=== PATIENT | female | born 1955 | race African-American/Black ===

== ENCOUNTER 2024-05-18 13:45 | Emergency (ER) | payer OTHER, MEDICARE ==
[~2024-05-18] VITALS: Ht 165.1 cm; Wt 73.0 kg
[2024-05-18 13:47] VITALS: O2SAT 100
[2024-05-18 14:42] LABS: BASOPHILS % 0.8 % (0.0-2.0); DIFFERENTIAL COMMENT 0; EOSINOPHILS % 2.9 % (0.0-5.0); HEMATOCRIT. 41.7 % (36.0-48.0); HEMOGLOBIN. 12.8 g/dL (12.0-16.0); LYMPHOCYTES % 27.3 % (20.0-50.0); MEAN CORPUSCULAR HEMOGLOBIN 27.2 pg (28.0-32.0); MEAN CORPUSCULAR HGB CONC 30.6 g/dL (31.0-37.0); MEAN PLATELET VOLUME 7.8 fl (7.4-10.4); MONOCYTES % 9.3 % (2.0-8.0); NEUTROPHILS % 59.7 % (40.0-76.0); PLATELET 246 x1000/uL (130-400); RED BLOOD CELL COUNT 4.69 mill/uL (4.2-5.4); RED CELL DISTRIBUTION WIDTH 17.4 % (11.6-14.6); WHITE BLOOD COUNT 6.3 x1000/uL (4.5-11.0)
[2024-05-18 14:43] LABS: CHLORIDE 102 mEq/L (98-107); POTASSIUM 4.7 mEq/L (3.5-5.1); SODIUM 140 mEq/L (136-145)
[2024-05-18 14:44] LABS: CARBON DIOXIDE 27 mEq/L (21-32)
[2024-05-18 14:45] LABS: CALCIUM 8.5 mg/dL (8.7-10.4)
[2024-05-18 14:49] LABS: CREATININE 4.8 mg/dL (0.6-1.0); GLUCOSE 122 mg/dL (70-105); UREA NITROGEN BLOOD 39 mg/dL (9-23)
[2024-05-18 14:50] LABS: TROPONIN I HIGH SENSITIVITY 19 ng/L (3.0-34)
[2024-05-18 16:24] LABS: PARTIAL THROMBOPLASTIN TIME 32.9 sec (23.4-31.0); PROTHROMBIN TIME 10.9 sec (9.6-11.0)
[2024-05-18 16:27] LABS: TROPONIN I HIGH SENSITIVITY 29 ng/L (3.0-34)
[2024-05-18] MEDS: HYDRALAZINE 20MG/ML VIAL IV ONE (17:36)
[2024-05-18] MEDS ORDERED: HYDROCODONE/ACETAMINOPHEN 5/325MG TABLET PO PRN (18:00)
[2024-05-18] MEDS ORDERED: MORPHINE SULFATE 2 MG/ML INJ (NOT FOR IM USE) IV PRN (18:00)
[2024-05-18] MEDS ORDERED: IPRATROPIUM/ALBUTEROL 0.5-3(2.5)MG/3ML NEB NEB PRN (18:00)
[2024-05-18] MEDS ORDERED: ACETAMINOPHEN 325MG TABLET PO PRN (18:00)
[2024-05-18] MEDS ORDERED: ONDANSETRON HCL 4MG/2ML INJ IV PRN (18:00)
[2024-05-18] MEDS: CLONIDINE 0.1MG TABLET PO PRN (18:44)
[2024-05-18] MEDS ORDERED: HYDRALAZINE 20MG/ML VIAL IV ONE (19:00)
[2024-05-18] MEDS: LABETALOL 5MG/ML 4ML INJ IV ONE (19:08)
[2024-05-18 19:17] VITALS: BP 175/87; PULSE 84; RESP 18; TEMP 37.1; O2SAT 99
[2024-05-18] MEDS ORDERED: ZOLPIDEM TARTRATE 5MG TABLET PO PRN (20:00)
[2024-05-19] MEDS ORDERED: PANTOPRAZOLE SODIUM 40 MG/VIAL IV SCH (09:00)
[2024-05-19] MEDS ORDERED: ENOXAPARIN 30MG/0.3ML SYR SUBCUT SCH (09:00)
[2024-05-19] MEDS ORDERED: ASPIRIN 81MG TABLET PO SCH (09:00)
== END 2024-05-18 19:30 | disposition short-term general hospital (02) ==
LOC: ER 13:45 → EDBEDREQ 13:52 → CANBEDREQ 15:26 → ER 19:30
DX: R07.89 Other chest pain (principal); E11.22 Type 2 diabetes mellitus with diabetic chronic kidney disease; N18.6 End stage renal disease; I50.9 Heart failure, unspecified; Z79.899 Other long term (current) drug therapy; Z88.6 Allergy status to analgesic agent; Z99.2 Dependence on renal dialysis
CPT/HCPCS: 99285; 96374; 71045; 96375; 80048; 83880; 85025; 85610; 85730; 84484; 36415; 93005; J0360; J3490